=== PATIENT | female | born 1950 | race American Indian/Alaskan Native ===

== ENCOUNTER 2021-06-17 12:07 | Emergency (ER) | payer OTHER ==
--- NOTE | 2021-06-17 14:39 | Event Note ---
ED Screening Note Date of service: 06/17/21 Time: 14:38 ED Screening Note: Patient presents with right lower leg wound for the past few days History of hypertension Denies history of diabetes States she scratched the area and the wound appeared Moderate edema noted with chronic skin changes that appear to be due to vascular insufficiency on exam Open tender wound noted to the lateral lower right leg This initial assessment/diagnostic orders/clinical plan/treatment(s) is/are subject to change based on patients health status, clinical progression and re- assessment by fellow clinical providers in the ED. Further treatment and workup at subsequent clinical providers discretion. Patient/guardian urged not to elope from the ED as their condition may be serious if not clinically assessed and managed. Initial orders include: Labs
[2021-06-17 14:53] LABS: Hematocrit 38.5 % (30.3-42.9); Hemoglobin 12.5 gm/dl (10.1-14.3); Mean Corpuscular HGB Conc 33 % (30-34); Mean Corpuscular Volume 84 fl (79-97); Platelet Count 293 K/mm3 (140-440); Red Blood Count 4.57 M/mm3 (3.65-5.03); Red Cell Distribution Width 14.9 % (13.2-15.2)
[2021-06-17 15:13] LABS: Calcium 9.3 mg/dL (8.4-10.2)
[2021-06-17] MEDS ORDERED: SULFAMETHOXAZOLE/TRIMETHOPRIM 800/160MG DS TAB PO ONE (15:16)
--- NOTE | 2021-06-17 15:22 | Emergency Department Report ---
HPI - General Chief Complaint: Skin/Abscess/Foreign Body Time Seen by Provider: 06/17/21 14:10 - HPI HPI: 70-year-old -N[place]alese female presents to the emergency department with complaint of a 6-day history of progressively worsening wound to the right lower extremity, to the outside of her ankle. She says that she was sitting outside and began having itching to this area. She was scratching it to the point where she caused some abrasion. She then tried cleaning the area and treating the itching with hydrogen peroxide. She has been using an antibiotic cream or ointment every other day to the area. Since that time she says that the wound has gotten progressively larger, and she has had some redness of the skin around the wound. She has some pain around the wound only with ambulation. She has a past medical history of hypertension. She does not have a primary care physician. She denies any fever. ED Past Medical Hx - Medications Home Medications: Home Medications Medication Instructions Recorded Confirmed Last Taken Type Sulfamethoxazole/Trimethoprim 1 each PO BID #14 tablet 06/17/21 Unknown Rx [Bactrim DS TAB] ED Review of Systems ROS: Stated complaint: RT FOOT INJURY Other details as noted in HPI Comment: All other systems reviewed and negative Constitutional: denies: chills, fever Eyes: denies: eye pain, vision change ENT: denies: ear pain, throat pain Respiratory: denies: cough, shortness of breath Cardiovascular: denies: chest pain, palpitations Gastrointestinal: denies: abdominal pain, vomiting Genitourinary: denies: dysuria, discharge Musculoskeletal: arthralgia (Right ankle pain with ambulation). denies: back pain Skin: lesions, change in color, pruritus Neurological: denies: numbness, paresthesias Physical Exam - Physical Exam Vital Signs: Vital Signs 06/17/21 12:16 Temperature 99.5 F Pulse Rate 98 H Respiratory 18 Rate Blood Pressure 153/94 [Left] O2 Sat by Pulse 100 Oximetry Physical Exam: GENERAL: The patient is well-developed well-nourished. HENT: Normocephalic. Atraumatic. Patient has moist mucous membranes. EYES: Extraocular motions are intact. NECK: Supple. Trachea is midline. CHEST/LUNGS: Clear to auscultation. There is no respiratory distress noted. HEART/CARDIOVASCULAR: Regular. There is no tachycardia. There is no murmur. ABDOMEN: Abdomen is soft, nontender. Patient has normal bowel sounds. SKIN: Skin is warm and dry. There is a oval-shaped ulcerating wound to the right lateral ankle that is about 2.5 inches in its greatest diameter. There is some surrounding erythema to the distal right tib-fib. NEURO: The patient is awake, alert, and oriented. The patient is cooperative. The patient has no focal neurologic deficits. Normal speech. MUSCULOSKELETAL: There is no tenderness or deformity. There is no limitation range of motion. ED Course Vital Signs 06/17/21 12:16 Temperature 99.5 F Pulse Rate 98 H Respiratory 18 Rate Blood Pressure 153/94 [Left] O2 Sat by Pulse 100 Oximetry ED Medical Decision Making - Lab Data Result diagrams: 06/17/21 14:41 06/17/21 14:41 Lab Results 06/17/21 06/17/21 Range/Units 14:41 14:41 WBC 7.8 (4.5-11.0) K/mm3 RBC 4.57 (3.65-5.03) M/mm3 Hgb 12.5 (10.1-14.3) gm/dl Hct 38.5 (30.3-42.9) % MCV 84 (79-97) fl MCH 27 L (28-32) pg MCHC 33 (30-34) % RDW 14.9 (13.2-15.2) % Plt Count 293 (140-440) K/mm3 Eos % (Auto) Records Management Clerk Add Manual Diff Complete Total Counted 100 Seg Neuts % (Manual) 37.0 L (40.0-70.0) % Lymphocytes % (Manual) 34.0 (13.4-35.0) % Reactive Lymphs % (Man) 9.0 % Monocytes % (Manual) 2.0 (0.0-7.3) % Eosinophils % (Manual) 18.0 H (0.0-4.3) % Nucleated RBC % Not Reportable Seg Neutrophils # Man 2.9 (1.8-7.7) K/mm3 Band Neutrophils # 0.0 K/mm3 Lymphocytes # (Manual) 2.7 (1.2-5.4) K/mm3 Abs React Lymphs (Man) 0.7 K/mm3 Monocytes # (Manual) 0.2 (0.0-0.8) K/mm3 Eosinophils # (Manual) 1.4 H (0.0-0.4) K/mm3 Basophils # (Manual) 0.0 (0.0-0.1) K/mm3 Metamyelocytes # 0.0 K/mm3 Myelocytes # 0.0 K/mm3 Promyelocytes # 0.0 K/mm3 Blast Cells # 0.0 K/mm3 WBC Morphology Not Reportable Hypersegmented Neuts Not Reportable Hyposegmented Neuts Not Reportable Hypogranular Neuts Not Reportable Smudge Cells Not Reportable Toxic Granulation Not Reportable Toxic Vacuolation Not Reportable Dohle Bodies Not Reportable Pelger-Huet Anomaly Not Reportable Lane Rods Not Reportable Platelet Estimate Consistent w auto Clumped Platelets Not Reportable Plt Clumps, EDTA Not Reportable Large Platelets Not Reportable Giant Platelets Not Reportable Platelet Satelliting Not Reportable Plt Morphology Comment Not Reportable RBC Morphology Not Reportable Dimorphic RBCs Not Reportable Polychromasia Not Reportable Hypochromasia Not Reportable Poikilocytosis Not Reportable Anisocytosis Not Reportable Microcytosis Not Reportable Macrocytosis Not Reportable Spherocytes Not Reportable Pappenheimer Bodies Not Reportable Sickle Cells Not Reportable Target Cells Not Reportable Tear Drop Cells Not Reportable Ovalocytes 1+ Helmet Cells Not Reportable [place] Bodies Not Reportable Whit[place] Rings Not Reportable Fields Cells Not Reportable Bite Cells Not Reportable Crenated Cell Not Reportable Elliptocytes Not Reportable Acanthocytes (Spur) Not Reportable Rouleaux Not Reportable Hemoglobin C Crystals Not Reportable Schistocytes Not Reportable Malaria parasites Not Reportable Parish Bodies Not Reportable Hem Pathologist Commnt No Sodium 140 (137-145) mmol/L Potassium 3.9 (3.6-5.0) mmol/L Chloride 100.7 (98-107) mmol/L Carbon Dioxide 29 (22-30) mmol/L Anion Gap 14 mmol/L BUN 29 H (7-17) mg/dL Creatinine 1.1 (0.6-1.2) mg/dL Estimated GFR 49 ml/min BUN/Creatinine Ratio 26 % Glucose 102 H (65-100) mg/dL Calcium 9.3 (8.4-10.2) mg/dL - Radiology Data Radiology results: report reviewed Right ankle radiograph, 3 views HISTORY: Open wound COMPARISON: None FINDINGS: There is diffuse soft tissue swelling of the ankle with skin wound of the medial distal foreleg/ankle. No aggressive cortical destructive changes to suggest osteomyelitis. 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 No evidence of acute fracture. DUPLEX DOPPLER LOWER EXTREMITY ARTERIAL, RIGHT INDICATION / CLINICAL INFORMATION: Right leg pain, swelling, poor wound healing. TECHNIQUE: Arterial duplex examination of the right lower extremity performed using B-mode, color flow and spectral Doppler assessment. FINDINGS: RIGHT: Common Femoral Artery: PSV 159 cm/sec. Triphasic waveform. Proximal SFA: PSV 150 cm/sec. Triphasic waveform. Mid SFA: PSV 100 cm/sec. Triphasic waveform. Distal SFA: PSV 71 cm/sec. Triphasic waveform. Popliteal artery: PSV 62 cm/sec. Triphasic waveform. Posterior tibial artery: PSV 88 cm/sec. Triphasic waveform. Dorsalis Pedis Artery: PSV 87 cm/sec. Triphasic waveform. Right KENNY: Not performed. IMPRESSION: 1. No significant right lower extremity peripheral artery disease. Ankle- Brachial Index (KENNY): - Calcified arteries > 1.4 - Normal = 0.9-1.4 - Mild PAD = 0.7-0.89 - Moderate PAD = 0.51-0.69 - Severe PAD < 0.5 Doppler Waveform: - Triphasic is normal. - Biphasic is abnormal if clear transition from triphasic signal along vascular tree. * - Monophasic is abnormal. DUPLEX DOPPLER LOWER EXTREMITY VEINS, RIGHT INDICATION / CLINICAL INFORMATION: Right leg pain, swelling, poor wound healing. TECHNIQUE: Duplex doppler imaging was performed through the veins of the right lower extremity using venous compression and other maneuvers. COMPARISON: None available. FINDINGS: RIGHT COMMON FEMORAL VEIN: Negative. RIGHT FEMORAL VEIN: Negative. RIGHT POPLITEAL VEIN: Negative. RIGHT CALF VEINS: Negative. ADDITIONAL FINDINGS: None. IMPRESSION: 1. No sonographic evidence for DVT in the right lower extremity. - Medical Decision Making This patient presents with a progressively worsening and enlarging ulcerating wound to the right lateral ankle, distal leg, that initially started from the patient causing some abrasions from scratching. Now she has a oval-shaped ulcerating wound that is about 2.5 inches in its greatest diameter. There is also distal right lower extremity nonpitting swelling and some erythema. This appears consistent with a cellulitis and also has some chronic skin changes that look like a venous stasis dermatitis. Labs have been unremarkable including CBC and metabolic panel. X-ray did not show any fracture, dislocation, signs of osteomyelitis, or any other acute process. Patient had arterial and venous Doppler ultrasounds of the right lower extremity that did not show any significant peripheral arterial or venous disease. She will be placed on antibiotics. We discussed wound care and monitoring for worsening infection. She has been given outpatient referral for the wound care clinic. Vitals reassuring including being afebrile. Critical Care Time: No Critical care attestation.: If time is entered above; I have spent that time in minutes in the direct care of this critically ill patient, excluding procedure time. ED Disposition Clinical Impression: Cellulitis of right leg Wound of right leg Qualifiers: Encounter type: initial encounter Qualified Code(s): S81.801A - Unspecified open wound, right lower leg, initial encounter Ulcer of left lower leg Qualifiers: Non-pressure ulcer stage: unspecified non-pressure ulcer stage Qualified Code(s): L97.929 - Non-pressure chronic ulcer of unspecified part of left lower leg with unspecified severity Disposition: 01 HOME / SELF CARE / HOMELESS Is pt being admited?: No Condition: Stable Instructions: Cellulitis, Adult, Wound Care, Adult Additional Instructions: Please follow-up with a primary care physician in the next few days. I have given you a referral for a local wound care clinic. Clean the area with soap and water and then make sure it remains dry. Do not use any creams or ointments unless directed to do so by your PCP or wound care clinic. Take all medications as prescribed. Return to the emergency department with any worsening of your symptoms, new or concerning symptoms not addressed during this current emergency department visit, or with any acute distress. Prescriptions: Sulfamethoxazole/Trimethoprim [Bactrim DS TAB] 1 each PO BID #14 tablet Referrals: [facility] [Outside] - 2-3 Days Time of Disposition: 19:32
[2021-06-17 15:49] LABS: Total Cells Counted 100
[2021-06-17 15:50] LABS: Ovalocytes 1+; Platelet Estimate Consistent w Auto
--- NOTE | 2021-06-17 15:53 | XRay Report ---
Right ankle radiograph, 3 views HISTORY: Open wound COMPARISON: None FINDINGS: There is diffuse soft tissue swelling of the ankle with skin wound of the medial distal foreleg/ankle . No aggressive cortical destructive changes to suggest osteomyelitis. 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 No evidence of acute fracture. Signer Name: Dwayne Lal MD Signed: 06/17/2021 3:48 PM Workstation Name: [id number]
[2021-06-17 17:01] VITALS: BP 126/86
--- NOTE | 2021-06-17 19:25 | Vascular Lab Report ---
DUPLEX DOPPLER LOWER EXTREMITY VEINS, RIGHT INDICATION / CLINICAL INFORMATION: Right leg pain, swelling, poor wound healing. TECHNIQUE: Duplex doppler imaging was performed through the veins of the right lower extremity using venous comp ression and other maneuvers. COMPARISON: None available. FINDINGS: RIGHT COMMON FEMORAL VEIN: Negative. RIGHT FEMORAL VEIN: Negative. RIGHT POPLITEAL VEIN: Negative. RIGHT CALF VEINS: Negative. ADDITIONAL FINDINGS: None. IMPRESSION: 1. No sonographic evidence for DVT in the right lower extremity. Signer Name: Brant Malloy MD Signed: 06/17/2021 7:20 PM Workstation Name: [id number]
--- NOTE | 2021-06-17 19:26 | Vascular Lab Report ---
DUPLEX DOPPLER LOWER EXTREMITY ARTERIAL, RIGHT INDICATION / CLINICAL INFORMATION: Right leg pain, swelling, poor wound healing. TECHNIQUE: Arterial duplex examination of the right lower extremity performed using B-mode, color flow and spect ral Doppler assessment. FINDINGS: RIGHT: Common Femoral Artery: PSV 159 cm/sec. Triphasic waveform. Proximal SFA: PSV 150 cm/sec. Triphasic waveform. Mid SFA: PSV 100 cm/sec. Triphasic waveform. Distal SFA: PSV 71 cm/sec. Triphasic waveform. Popliteal artery: PSV 62 cm/sec. Triphasic waveform. Posterior tibial artery: PSV 88 cm/sec. Triphasic waveform. Dorsalis Pedis Artery: PSV 87 cm/sec. Triphasic waveform. Right KENNY: Not performed. IMPRESSION: 1. No significant right lower extremity peripheral artery disease. Ankle-Brachial Index (KENNY): - Calcified arteries > 1.4 - Normal = 0.9-1.4 - Mild PAD = 0.7-0.89 - Moderate PAD = 0.51-0.69 - Severe PAD < 0.5 Doppler Waveform: - Triphasic is normal. - Biphasic is abnormal if clear transition from triphasic signal along vascular tree. * - Monophasic is abnormal. Signer Name: Brant Malloy MD Signed: 06/17/2021 7:21 PM Workstation Name: [id number]
== END 2021-06-17 19:32 | disposition home or self-care (01) ==
LOC: ED 12:07
DX: S81.801A Unspecified open wound, right lower leg, initial encounter (principal); L97.929 Non-pressure chronic ulcer of unspecified part of left lower leg with unspecified severity; L03.115 Cellulitis of right lower limb; Z79.899 Other long term (current) drug therapy; X58.XXXA Exposure to other specified factors, initial encounter; Y93.89 Activity, other specified; Y92.89 Other specified places as the place of occurrence of the external cause; Y99.8 Other external cause status
CPT/HCPCS: 36415; 80048; 85007; 85025; 99284

== ENCOUNTER 2021-11-12 10:30 | Emergency (ER) | payer SELFPAY ==
--- NOTE | 2021-11-12 11:55 | Emergency Department Report ---
ED General Adult HPI - General Chief complaint: Wound/Laceration Stated complaint: RT LEG OPEN WOUND Time Seen by Provider: 11/12/21 11:51 Source: patient Mode of arrival: Ambulatory Limitations: No Limitations - History of Present Illness Initial comments: Patient is 71 years old female with history of diabetes and hypertension. Patient presented to the ER complaining of right leg wound. Patient stated that has been going on for a while however she went to see her primary care physician yesterday and asked her to come to the ER. Patient denied any fever or chills. She denied any change in her wound size. She denied any chest pain or shortness of breath. - Related Data Previous Rx's Medication Instructions Recorded Last Taken Type Sulfamethoxazole/Trimethoprim 1 each PO BID #14 tablet 06/17/21 Unknown Rx [Bactrim DS TAB] Allergies Allergy/AdvReac Type Severity Reaction Status Date / Time Penicillins AdvReac Unknown Verified 06/17/21 12:19 ED Review of Systems ROS: Stated complaint: RT LEG OPEN WOUND Other details as noted in HPI Comment: All other systems reviewed and negative Constitutional: denies: chills, fever Respiratory: denies: cough, shortness of breath, SOB with exertion Cardiovascular: denies: chest pain, palpitations Gastrointestinal: denies: abdominal pain, nausea, vomiting Musculoskeletal: denies: back pain Neurological: denies: headache, weakness, numbness, paresthesias, confusion ED Past Medical Hx - Social History Smoking Status: Never Smoker Substance Use Type: None - Medications Home Medications: Home Medications Medication Instructions Recorded Confirmed Last Taken Type Sulfamethoxazole/Trimethoprim 1 each PO BID #14 tablet 06/17/21 Unknown Rx [Bactrim DS TAB] ED Physical Exam - General Limitations: No Limitations General appearance: alert, in no apparent distress - Head Head exam: Present: atraumatic, normocephalic, normal inspection - Eye Eye exam: Present: normal appearance - ENT ENT exam: Present: normal exam, normal orophraynx, mucous membranes moist - Neck Neck exam: Present: normal inspection, full ROM. Absent: tenderness, meningismus - Respiratory Respiratory exam: Present: normal lung sounds bilaterally - Cardiovascular Cardiovascular Exam: Present: regular rate, normal rhythm, normal heart sounds - GI/Abdominal GI/Abdominal exam: Present: soft, normal bowel sounds. Absent: distended, tenderness, guarding, rebound, rigid, organomegaly, mass, bruit, pulsatile mass, hernia - Extremities Exam Extremities exam: Present: other (Right leg with wound looks like grade 3 ulcer with mild greenish discharge. No redness or warmness.) - Back Exam Back exam: Present: normal inspection, full ROM. Absent: CVA tenderness (R), CVA tenderness (L) - Neurological Exam Neurological exam: Present: alert, oriented X3, CN II-XII intact - Psychiatric Psychiatric exam: Present: normal mood ED Course Vital Signs 11/12/21 11/12/21 11:40 14:40 Temperature 98.3 F 98.4 F Pulse Rate 79 76 Respiratory 18 20 Rate Blood Pressure 140/90 [Right] O2 Sat by Pulse 100 98 Oximetry ED Medical Decision Making - Lab Data Result diagrams: 11/12/21 13:05 11/12/21 13:01 - Medical Decision Making Patient is 71 years old female with history of diabetes and hypertension. Patient presented to the ER complaining of right leg wound. Patient stated that has been going on for a while however she went to see her primary care physician yesterday and asked her to come to the ER. Patient denied any fever or chills. She denied any change in her wound size. She denied any chest pain or shortness of breath. Arterial Doppler ultrasound showed no acute abnormalities. Labs reviewed and is unremarkable. Patient will need to follow-up with a wound care. I gave patient Dr. Reyes for follow-up. Patient advised to return to the ER she develop any new symptoms. Critical care attestation.: If time is entered above; I have spent that time in minutes in the direct care of this critically ill patient, excluding procedure time. ED Disposition Clinical Impression: Leg wound, right Disposition: HOME / SELF CARE / HOMELESS Is pt being admited?: No Condition: Stable Instructions: Wound Care, Adult Referrals: JAIDEN REYES MD [Staff Physician] - 3-5 Days
--- NOTE | 2021-11-12 12:59 | Vascular Lab Report ---
DUPLEX DOPPLER LOWER EXTREMITY ARTERIAL, RIGHT INDICATION / CLINICAL INFORMATION: Right leg wound, diabetic.. TECHNIQUE: Arterial duplex examination of both lower extremities performed using B-mode, color flow a nd spectral Doppler assessment. FINDINGS: RIGHT: - Atherosclerotic Plaque: No significant atherosclerotic plaque. - Elevated Velocity (>200 cm/s): None. - Abnormal Waveform: None. ADDITIONAL FINDINGS: None. Right KENNY: Not documented IMPRESSION: 1. No significant lower extremity peripheral artery disease. Ankle-Brachial Index (KENNY): - Calcified arteries > 1.4 - Normal = 0.9-1.4 - Mild PAD = 0.7-0.89 - Moderate PAD = 0.51-0.69 - Severe PAD < 0.5 Doppler Waveform: - Triphasic is normal. - Biphasic is abnormal if clear transition from triphasic signal along vascular tree. - Monophasic is abnormal. Signer Name: Prudencio Parada II, MD Signed: 11/12/2021 12:54 PM Workstation Name: [id number]
[2021-11-12 13:40] LABS: Basophils # (Auto) 0.1 K/mm3 (0.0-0.1); Basophils % (Auto) 0.8 % (0.0-1.8); Eosinophils # (Auto) 0.2 K/mm3 (0.0-0.4); Eosinophils % (Auto) 2.7 % (0.0-4.3); Hematocrit 37.9 % (30.3-42.9); Hemoglobin 12.1 gm/dl (10.1-14.3); Lymphocytes # (Auto) 2.6 K/mm3 (1.2-5.4); Lymphocytes % (Auto) 32.7 % (13.4-35.0); Mean Corpuscular HGB Conc 32 % (30-34); Mean Corpuscular Volume 83 fl (79-97); Monocytes # (Auto) 0.6 K/mm3 (0.0-0.8); Monocytes % (Auto) 7.1 % (0.0-7.3); Platelet Count 275 K/mm3 (140-440); Red Blood Count 4.56 M/mm3 (3.65-5.03); Red Cell Distribution Width 16.1 % (13.2-15.2)
[2021-11-12 13:59] LABS: BUN/Creatinine Ratio 25; Blood Urea Nitrogen 20 mg/dL (7-17); Calcium 9.2 mg/dL (8.4-10.2); Hemolysis Index 5
[2021-11-12 14:44] VITALS: BP 140/90
== END 2021-11-12 16:17 | disposition home or self-care (01) ==
LOC: ED 10:30
DX: S81.801A Unspecified open wound, right lower leg, initial encounter (principal); E11.9 Type 2 diabetes mellitus without complications; I10 Essential (primary) hypertension; Z79.899 Other long term (current) drug therapy; X58.XXXA Exposure to other specified factors, initial encounter; Y93.89 Activity, other specified; Y92.89 Other specified places as the place of occurrence of the external cause; Y99.8 Other external cause status
CPT/HCPCS: 36415; 80048; 85025; 99284